=== PATIENT | male | born 1990 | race Caucasian/White ===

== ENCOUNTER 2022-11-26 12:53 | Inpatient (IN) | payer OTHER, SELFPAY ==
[2022-11-26] VITALS (22 sets, daily range): BP systolic 97–124; BP diastolic 46–70; PULSE 96–105; RESP 12–23; TEMP 36.4–36.8; O2SAT 98–100; BMI 22.1; BMI 23.7
--- NOTE | 2022-11-26 13:08 | ED.GENADUL1 ---
HPI - General Adult General Chief complaint: Nausea/Vomiting/Diarrhea Stated complaint: hyperglycemia Time Seen by Provider: 11/26/22 13:01 Source: patient Mode of arrival: ambulance History of Present Illness HPI narrative: this patient's here by ambulance for evaluation of vomiting and high blood sugar. He has a known juvenile diabetic and does have a diabetic doctor in [place]. Jadiel does not have an insulin pump. For uncertain reasons he did not take any of his insulin yesterday. He felt fine all day yesterday and completed his work day. Approximately 11 PM last night he started having nausea and vomiting. Has not been running a fever. Does not have cough cold or upper respirations symptoms. No chest pain or shortness of breath. No abdominal pain. No recent infectious process or skin lesions. His meds have not been changed. There is a said he was noncompliant yesterday. Denies any use of street drugs. Related Data Home Medications Medication Instructions Recorded Confirmed insulin lispro 100 unit/mL 1 sliding scale dose subcut 11/26/22 11/26/22 subcutaneous solution .COMPLEX Previous Rx's Medication Instructions Recorded insulin degludec 100 unit/mL (3 20 unit (0.2 mL) subcut Q24H #0 mL 11/28/22 mL) subcutaneous pen (Tresiba FlexTouch U-100 insulin) nystatin 100,000 unit/mL oral 1 ml PO QID 7 days #28 mL 11/28/22 suspension Allergies Allergy/AdvReac Type Severity Reaction Status Date / Time No Known Drug Allergies Allergy Verified 11/26/22 12:56 [facility] Medical History (Updated 12/21/22 @ 15:04 by Danny Zarate MD) Social History Smoking status: Former smoker Exam Narrative Exam Narrative: awake alert not confused. Does not have any pain just, or discomfort. Just feels extremely weak and fatigued. Constitutional Vital Signs - 24 hr 11/26/22 12:59 Temperature 97.6 F Pulse Rate [Monitor] 100 H Respiratory Rate 15 Blood Pressure [Right Arm] 102/70 Pulse Oximetry 100 Oxygen Delivery Method Room Air Common normals: no apparent distress, average body habitus and alert Exam limitations: no altered mental status General appearance: cooperative Respiratory Common normals: normal respiratory effort and clear to auscultation bilaterally Cardio Common normals: no murmurs GI Common normals: Normal to inspection, nondistended, normoactive bowel sounds present and non-tender Extremity Common normals: normal to inspection and no pedal edema Course Vital Signs Vital signs: Vital Signs Pulse Oximetry 100 11/26/22 12:57 Temperature 98.4 F 11/28/22 14:39 Pulse Rate 98 H 11/28/22 14:39 Respiratory Rate 16 11/28/22 14:39 Blood Pressure 142/79 H 11/28/22 14:39 Pulse Oximetry 95 11/28/22 14:39 Oxygen Delivery Method Room Air 11/28/22 15:53 Medical Decision Making MDM Narrative Medical decision making narrative: this patient reports that he gave himself twenty-five units of rapid acting insulin shortly before paramedics arrived. Patient's BUN/creatinine which suggests substantial fluid loss over several days and he confirms his blood sugars have in fact been running very high. He had a history of DKA many many years ago but none recently. His anion gap is quite elevated. Phosphorus and magnesium levels were elevated as well. He was given IV fluids and when the laboratory was completed I spoke with the hospitalist who will order insulin drip on this patient. Again he was given himself insulin before he arrived here in the Emergency Room. Lab Data Labs: Lab Results 11/26/22 11/26/22 Range/Units 13:23 14:17 WBC 20.7 H (4.0-11.0) 10^3/uL RBC 4.20 L (4.70-6.10) 10^6/uL Hgb 13.1 L (14.0-18.0) g/dL Hct 37.5 L (42.0-54.0) % MCV 89.3 (80.0-94.0) fL MCH 31.2 (25.9-34.0) pg MCHC 34.9 (29.9-35.2) g/dL RDW 11.5 (11.0-15.0) % Plt Count 310 (150-450) 10^3/uL MPV 8.9 L (9.5-13.5) fL Seg Neuts % (Manual) 83.0 Band Neutrophils % 1.0 (0-5) % Lymphocytes % (Manual) 14.0 L (20.5-60.0) % Monocytes % (Manual) 2.0 (1.7-12.0) % Eosinophils % (Manual) 0.0 L (0.9-7.0) % Basophils % (Manual) 0.0 L (0.2-2.0) % Neutrophils # (Manual) 17.18 H (1.4-6.5) 10^3/uL Band Neutrophils # 0.2 (0.0-0.3) 10^3/uL Lymphocytes # (Manual) 2.89 (1.20-3.80) 10^3/uL Monocytes # (Manual) 0.41 (0.30-0.80) 10^3/uL Eosinophils # (Manual) 0.00 (0.00-0.70) 10^3/uL Basophils # (Manual) 0.00 (0.00-0.10) 10^3/uL Sodium 136 (136-145) mmol/L Potassium 4.2 (3.5-5.1) mmol/L Chloride 95 L (98-107) mmol/L Carbon Dioxide 8.6 L (21.0-32.0) mmol/L Anion Gap 36.6 BUN 46.0 H (7.0-18.0) mg/dL Creatinine 2.30 H (0.70-1.30) mg/dL Est GFR ( Amer) 40 L (>=60) Est GFR (Non-Af Amer) 33 L (>=60) BUN/Creatinine Ratio 20.0 Glucose 598 H* (74-106) mg/dL Lactate 2.1 H (0.4-2.0) mmol/L Calcium 9.0 (8.5-10.1) mg/dL Phosphorus 6.2 H* (2.6-4.7) mg/dL Magnesium 2.8 H (1.8-2.4) mg/dL POC Glucose 528 H* (74-106) mg/dL Discharge Plan Discharge Chief Complaint: Nausea/Vomiting/Diarrhea Clinical Impression: DKA (diabetic ketoacidosis) Patient Disposition: Admitted As Inpatient Time of Disposition Decision: 14:41 Discharge Date/Time: 11/26/22 15:07
--- NOTE | 2022-11-26 13:28 | PC.NURSE ---
Pt ran out of Dexcom sensors 3 days ago -- started feeling ill last night. BS with EMS 593. Pt is N/V.
[2022-11-26] MEDS: 0.9 % SODIUM CHLORIDE 1,000 ML 999 ML IV ×2 (13:34→14:47)
[2022-11-26 13:45] LABS: Hematocrit 37.5 % (42.0-54.0); Hemoglobin 13.1 g/dL (14.0-18.0); Mean Corpuscular HGB Conc 34.9 g/dL (29.9-35.2); Mean Corpuscular Hemoglobin 31.2 pg (25.9-34.0); Mean Corpuscular Volume 89.3 fL (80.0-94.0); Mean Platelet Volume 8.9 fL (9.5-13.5); Platelet Count 310 10^3/uL (150-450); Red Cell Distribution Width 11.5 % (11.0-15.0); White Blood Count 20.7 10^3/uL (4.0-11.0)
[2022-11-26 14:01] LABS: Lactate/Lactic Acid 2.1 mmol/L (0.4-2.0)
[2022-11-26 14:08] LABS: Anion Gap 36.6; Carbon Dioxide 8.6 mmol/L (21.0-32.0); Chloride 95 mmol/L (98-107); Estimated GFR (African America 40 (>=60); Estimated GFR (Non-African Ame 33 (>=60); Magnesium 2.8 mg/dL (1.8-2.4); Potassium 4.2 mmol/L (3.5-5.1); Sodium 136 mmol/L (136-145)
[2022-11-26 14:13] LABS: Band Neutrophils Absolute 0.2 10^3/uL (0.0-0.3); Lymphocytes Absolute Manual 2.89 10^3/uL (1.20-3.80); Monocytes Absolute Manual 0.41 10^3/uL (0.30-0.80); Segmented Neut Absolute Manual 17.18 10^3/uL (1.4-6.5)
[2022-11-26 14:16] LABS: Glucose 598 mg/dL (74-106); Phosphorus 6.2 mg/dL (2.6-4.7)
[2022-11-26 14:20] LABS: Glucometer 528 mg/dL (74-106)
--- NOTE | 2022-11-26 14:48 | ECG_ITS ---
[facility] Test Date: 2022-11-26 Pat Name: REZA REZA Department: Room: - Gender: Male [facility] [employer]: : 1990 Requested By: JOANNA GARCIA Order Number: [id number] Reading MD: TIGIST VASQUEZ Measurements Intervals [place] Rate: 96 P: 82 PA: 146 QRS: 91 QRSD: 110 T: -3 QT: 380 QTc: 433 Interpretive Statements 1100 Sinus rhythm Non-Specific T wave inversion in III 7102 Moderate right axis deviation 0102 ARTIFACT PRESENT 9130 borderline ECG No previous ECG available for comparison Electronically Signed On 11-28-2022 7:49:15 EDT by TIGIST VASQUEZ
[2022-11-26] MEDS: POTASSIUM CHLORIDE-0.45% NACL 1,000 ML 100 MEQ IV (15:37)
[2022-11-26] MEDS: INSULIN REGULAR IN 0.9 % NACL 100 UNIT/100 ML PLAST..BAG IV (15:37)
--- NOTE | 2022-11-26 16:05 | P.HP_ITS ---
H&P: HPI History of Present Illness Chief complaint: hypoglycemia, DKA Narrative: 32 y.o. male with history of Insulin dependent diabetes developed vomiting yesterday. He reports vomiting about every hour, no diarrhea, no fevers or chills. No sick contacts. He has not taken his insulin in several days. No other medical history, no personal history of kidney disease. Lives with mom and dad, does work daily. Review of Systems ROS Narrative ROS: a complete review of systems were reviewed with patient and are positive as below or listed in History of Chief Complaint. General: no fever, chills, night sweats Head: no headache, trauma, visual changes, nausea or vomiting Skin: no reported rashes, itching or sores Eyes: no blurriness of vision Ears: no reported hearing loss, vertigo, earache, or tinnitus Throat: no sore throat, hoarseness, swelling of neck, or tongue pain Heart: no chest pain Lungs: no shortness of breath or cough GI: no diarrhea but vomiting/nausea Urinary: no urinary urgency, frequency or pain Neuro: no numbness or tingling HEM: no bleeding issues or bruising ENDO: no thyroid problems Psych: no anxiety or depression [facility] Medical History (Updated 11/26/22 @ 16:15 by Sarah Reynaga DO) Social History Smoking status: Former smoker Meds Home Medications and Allergies Home Medications Medication Instructions Recorded Confirmed Type insulin degludec 100 unit/mL (3 26 unit subcut Q24H 11/26/22 11/26/22 History mL) subcutaneous pen (Tresiba FlexTouch U-100 insulin) insulin lispro 100 unit/mL 1 sliding scale dose subcut 11/26/22 11/26/22 History subcutaneous solution .COMPLEX Allergies Allergy/AdvReac Type Severity Reaction Status Date / Time No Known Drug Allergies Allergy Verified 11/26/22 12:56 Exam Narrative Exam Narrative: General: Patient is alert, and oriented to person, place and time with normal affect, proper hygiene Skin: no visible rashes, or ulcers Head: atraumatic, acephalic Eyes: PERRLA, no nystagmus present, conjunctiva clear, no scleral icterus Ears: bilateral cerumen impaction, normal gross auditory acuity Nose: symmetric, no discharge, no maxillary or frontal sinus tenderness Mouth/Throat: no erythema, exudate, or tonsillar enlargement, normal dentition Neck: no masses palpated, normal thyroid, no JVD or audible carotid bruits Heart: Normal rate and rhythm, no murmurs/rubs/gallops Lungs: no audible wheezes, crackles and normal breath sounds all lung mcgrath Abdomen: Normal audible bowel sounds, no distension, No palpable masses, no organomegaly, no rebound/guarding/ or rigidity Musculoskeletal: muscle atrophy noted, ROM is limited due to being in hospital bed, no swelling bilateral lower extremities Vascular: Normal carotid, radial, femoral, posterior tibial, and dorsalis pedis pulses Lymph: no supraclavicular, axillary, or anterior/posterior cervical adenopathy Neuro: CN II-X grossly intact, normal sensation upper and lower extremities Constitutional Vital Signs - 24 hr 11/26/22 12:59 11/26/22 12:57 11/26/22 13:00 Temperature 97.6 F Pulse Rate 100 H Pulse Rate [Monitor] 100 H Respiratory Rate 15 14 Blood Pressure 99/49 L Blood Pressure [Right Arm] 102/70 Pulse Oximetry 100 100 100 Oxygen Delivery Method Room Air 11/26/22 13:00 11/26/22 13:17 11/26/22 13:31 Temperature Pulse Rate 96 H 100 H 103 H Pulse Rate [Monitor] Respiratory Rate 20 13 17 Blood Pressure 97/58 L 99/55 L Blood Pressure [Right Arm] Pulse Oximetry 100 100 99 Oxygen Delivery Method 11/26/22 13:45 11/26/22 14:00 11/26/22 14:15 Temperature Pulse Rate 105 H 103 H 103 H Pulse Rate [Monitor] Respiratory Rate 15 18 16 Blood Pressure 101/67 112/56 L 124/70 H Blood Pressure [Right Arm] Pulse Oximetry 100 99 99 Oxygen Delivery Method 11/26/22 14:30 11/26/22 14:45 11/26/22 15:00 Temperature Pulse Rate 103 H 100 H 102 H Pulse Rate [Monitor] Respiratory Rate 14 14 14 Blood Pressure 109/62 99/66 97/64 Blood Pressure [Right Arm] Pulse Oximetry 99 99 99 Oxygen Delivery Method 11/26/22 15:07 11/26/22 15:10 11/26/22 15:13 Temperature Pulse Rate 102 H 100 H 99 H Pulse Rate [Monitor] Respiratory Rate 14 16 23 Blood Pressure Blood Pressure [Right Arm] Pulse Oximetry Oxygen Delivery Method 11/26/22 15:14 Temperature Pulse Rate 100 H Pulse Rate [Monitor] Respiratory Rate 12 Blood Pressure 100/52 L Blood Pressure [Right Arm] Pulse Oximetry 98 Oxygen Delivery Method Results Labs Labs: Short CBC 11/26/22 Range/Units 13:23 WBC 20.7 H (4.0-11.0) 10^3/uL Hgb 13.1 L (14.0-18.0) g/dL Hct 37.5 L (42.0-54.0) % Plt Count 310 (150-450) 10^3/uL BMP 11/26/22 13:23 Sodium 136 Potassium 4.2 Chloride 95 L Carbon Dioxide 8.6 L BUN 46.0 H Creatinine 2.30 H Glucose 598 H* Calcium 9.0 Assessment and Plan Assessment and Plan (1) Diabetic ketoacidosis associated with type 2 diabetes mellitus: Assessment and Plan: start insulin drip at 2 units/hour, q 6 hours cmp, mag; IVF with 3 L NS, now on 1/2 NS with 20 KCL once sugars <200 then start d5 1/2 NS. SSI, once gap closes, currently 35 anion gap and will also restart long acting insulin (2) Acute renal failure (ARF): Assessment and Plan: check urinalysis, possible CT scan, ultrasound has left for the day (3) Dehydration: Assessment and Plan: IVF hydration
[2022-11-26 21:57] LABS: Alanine Aminotransferase 27 U/L (16-63); Albumin Level 3.3 g/dL (3.4-5.0); Alkaline Phosphatase 113 U/L (46-116); Aspartate Amino Transferase 22 U/L (15-37); BUN Creatinine Ratio 18.8; Bilirubin Total 0.5 mg/dL (0.2-1.0); Calcium 8.3 mg/dL (8.5-10.1); Carbon Dioxide 18.5 mmol/L (21.0-32.0); Chloride 103 mmol/L (98-107); Estimated GFR (African America 51 (>=60); Estimated GFR (Non-African Ame 42 (>=60); Globulin 3.4 g/dL; Glucose 286 mg/dL (74-106); Potassium 4.5 mmol/L (3.5-5.1); Sodium 138 mmol/L (136-145); Total Protein 6.7 g/dL (6.4-8.2)
[2022-11-26 21:58] LABS: Magnesium 2.1 mg/dL (1.8-2.4)
[2022-11-26 22:01] LABS: Lactate/Lactic Acid 0.7 mmol/L (0.4-2.0)
[2022-11-26 22:52] LABS: Bilirubin Urine SMALL (NEGATIVE); Blood Urine NEGATIVE (NEGATIVE); Clarity Urine CLEAR (CLEAR); Color Urine LT. YELLOW (YELLOW); Glucose Urine UA >=1000 mg/dL (NEGATIVE); Ketones Urine >=80 mg/dL (NEGATIVE); Leukocyte Esterase Urine NEGATIVE (NEGATIVE); Nitrite Urine NEGATIVE (NEGATIVE); Protein Urine NEGATIVE (NEG/TRACE); Specific Gravity Urine 1.015 (1.005-1.025); Urobilinogen Urine 0.2 EU/dL (0.2-1.0); pH Urine 5.5 (5.0-9.0)
[2022-11-26 22:53] LABS: Urine Microscopic Indicated NO
[2022-11-26 23:23] LABS: Amphetamine Screen Urine NEGATIVE (NEGATIVE); Barbiturates Screen Urine NEGATIVE (NEGATIVE); Benzodiazepines Screen Urine NEGATIVE (NEGATIVE); Buprenorphine Screen Urine NEGATIVE (NEGATIVE); Cannabinoid Screen Urine NEGATIVE (NEGATIVE); Cocaine Screen Urine NEGATIVE (NEGATIVE); Methadone Screen Urine NEGATIVE (NEGATIVE); Methamphetamines Screen Urine NEGATIVE (NEGATIVE); Opiate Screen Urine NEGATIVE (NEGATIVE); Oxycodone Screen Urine NEGATIVE (NEGATIVE); Phencyclidine Screen Urine NEGATIVE (NEGATIVE); Tricyclic Antidepressant Urine NEGATIVE (NEGATIVE)
[2022-11-27] VITALS (15 sets, daily range): BP systolic 112–149; BP diastolic 63–91; PULSE 93–109; RESP 13–18; TEMP 36.6–37.7; O2SAT 93–97
[2022-11-27] MEDS: POTASSIUM CHLORIDE-0.45% NACL 1,000 ML 100 MEQ IV (02:23)
[2022-11-27 03:42] LABS: Basophils Percent Auto 0.1 % (0.2-2.0); Hematocrit 30.8 % (42.0-54.0); Hemoglobin 11.1 g/dL (14.0-18.0); Immature Granulocytes Abs Auto 0.05 10^3/uL (0.00-0.03); Immature Granulocytes Pct Auto 0.4 % (0.0-0.5); Lymphocytes Absolute Auto 0.9 10^3/uL (1.2-3.8); Lymphocytes Percent Auto 6.6 % (20.5-60.0); Mean Corpuscular Hemoglobin 31.2 pg (25.9-34.0); Mean Corpuscular Volume 86.5 fL (80.0-94.0); Mean Platelet Volume 8.1 fL (9.5-13.5); Monocytes Percent Auto 7.1 % (1.7-12.0); Neutrophils Absolute Auto 11.7 10^3/uL (1.4-6.5); Neutrophils Percent Auto 85.8 % (43.0-75.0); Platelet Count 215 10^3/uL (150-450); Red Blood Count 3.56 10^6/uL (4.70-6.10); White Blood Count 13.6 10^3/uL (4.0-11.0)
[2022-11-27 03:59] LABS: Estimated Average Glucose 413 mg/dL; Glycohemoglobin A1C >16.0 % (4.5-6.2)
[2022-11-27 04:06] LABS: Alanine Aminotransferase 27 U/L (16-63); Albumin Globulin Ratio 0.9; Alkaline Phosphatase 103 U/L (46-116); Anion Gap 12.7; Aspartate Amino Transferase 29 U/L (15-37); BUN Creatinine Ratio 17.4; Bilirubin Total 0.4 mg/dL (0.2-1.0); Calcium 8.2 mg/dL (8.5-10.1); Carbon Dioxide 24.3 mmol/L (21.0-32.0); Chloride 105 mmol/L (98-107); Estimated GFR (African America >60 (>=60); Estimated GFR (Non-African Ame 50 (>=60); Globulin 3.3 g/dL; Glucose 200 mg/dL (74-106); Sodium 138 mmol/L (136-145); Total Protein 6.3 g/dL (6.4-8.2)
[2022-11-27 04:07] LABS: Magnesium 2.1 mg/dL (1.8-2.4); Thyroid Stimulating Hormone 0.582 uIU/mL (0.358-3.740)
[2022-11-27] MEDS: INSULIN ASPART 300 UNIT/3 ML PEN SUBQ (08:29)
[2022-11-27 09:14] LABS: Alanine Aminotransferase 24 U/L (16-63); Albumin Globulin Ratio 0.9; Albumin Level 3.1 g/dL (3.4-5.0); Alkaline Phosphatase 105 U/L (46-116); Anion Gap 17.5; Aspartate Amino Transferase 31 U/L (15-37); BUN Creatinine Ratio 15.3; Bilirubin Total 0.5 mg/dL (0.2-1.0); Calcium 8.4 mg/dL (8.5-10.1); Carbon Dioxide 21.8 mmol/L (21.0-32.0); Chloride 102 mmol/L (98-107); Estimated GFR (African America >60 (>=60); Estimated GFR (Non-African Ame >60 (>=60); Globulin 3.6 g/dL; Glucose 282 mg/dL (74-106); Potassium 4.3 mmol/L (3.5-5.1); Sodium 137 mmol/L (136-145); Total Protein 6.7 g/dL (6.4-8.2)
[2022-11-27 09:38] LABS: Glucometer 245 mg/dL (74-106)
[2022-11-27] MEDS: INSULIN DETEMIR 300 UNIT/3 ML INSULN.PEN 15 UNIT SUBQ (11:32)
--- NOTE | 2022-11-27 13:12 | P.PN_ITS ---
Progress Note: Subjective Subjective Interval history: 32 y.o. male with history of Insulin dependent diabetes developed vomiting 2 days ago. He reports vomiting about every hour, no diarrhea, no fevers or chills. No sick contacts. He has not taken his insulin in several days. No other medical history, no personal history of kidney disease. Lives with mom and dad, does work daily. feels better this morning, no vomiting overnight. admits to sore throat today Exam Narrative Exam Narrative: General: Patient is alert, and oriented to person, place and time with normal affect, proper hygiene Skin: no visible rashes, or ulcers Head: atraumatic, acephalic Heart: Normal rate and rhythm, no murmurs/rubs/gallops Lungs: no audible wheezes, crackles and normal breath sounds all lung mcgrath Abdomen: Normal audible bowel sounds, no distension, No palpable masses, no organomegaly, no rebound/guarding/ or rigidity Musculoskeletal: muscle atrophy noted, ROM is limited due to being in hospital bed, no swelling bilateral lower extremities Vascular: Normal carotid, radial, femoral, posterior tibial, and dorsalis pedis pulses Lymph: no supraclavicular, axillary, or anterior/posterior cervical adenopathy Neuro: CN II-X grossly intact, normal sensation upper and lower extremities Constitutional Vital Signs - 24 hr 11/26/22 13:17 11/26/22 13:31 11/26/22 13:45 Temperature Pulse Rate 100 H 103 H 105 H Pulse Rate [Monitor] Respiratory Rate 13 17 15 Blood Pressure 97/58 L 99/55 L 101/67 Blood Pressure [Right Arm] Pulse Oximetry 100 99 100 Oxygen Delivery Method 11/26/22 14:00 11/26/22 14:15 11/26/22 14:30 Temperature Pulse Rate 103 H 103 H 103 H Pulse Rate [Monitor] Respiratory Rate 18 16 14 Blood Pressure 112/56 L 124/70 H 109/62 Blood Pressure [Right Arm] Pulse Oximetry 99 99 99 Oxygen Delivery Method 11/26/22 14:45 11/26/22 15:00 11/26/22 15:07 Temperature Pulse Rate 100 H 102 H 102 H Pulse Rate [Monitor] Respiratory Rate 14 14 14 Blood Pressure 99/66 97/64 Blood Pressure [Right Arm] Pulse Oximetry 99 99 Oxygen Delivery Method 11/26/22 15:10 11/26/22 15:13 11/26/22 15:14 Temperature Pulse Rate 100 H 99 H 100 H Pulse Rate [Monitor] Respiratory Rate 16 23 12 Blood Pressure 100/52 L Blood Pressure [Right Arm] Pulse Oximetry 98 Oxygen Delivery Method 11/26/22 15:19 11/26/22 15:19 11/26/22 15:19 Temperature 98.3 F Pulse Rate 101 H Pulse Rate [Monitor] 101 H 101 H Respiratory Rate 18 18 18 Blood Pressure Blood Pressure [Right Arm] 100/46 L Pulse Oximetry 99 100 Oxygen Delivery Method Room Air Room Air 11/26/22 14:57 11/26/22 16:30 11/26/22 19:19 Temperature Pulse Rate 101 H Pulse Rate [Monitor] 101 H Respiratory Rate 18 Blood Pressure Blood Pressure [Right Arm] Pulse Oximetry 99 Oxygen Delivery Method Room Air 11/26/22 19:35 11/27/22 00:00 11/26/22 20:00 Temperature 98 F Pulse Rate Pulse Rate [Monitor] 101 H Respiratory Rate 13 Blood Pressure Blood Pressure [Right Arm] Pulse Oximetry 99 Oxygen Delivery Method Room Air 11/27/22 04:00 11/27/22 04:06 11/26/22 20:00 Temperature Pulse Rate 93 H 99 H Pulse Rate [Monitor] 101 H Respiratory Rate 13 Blood Pressure Blood Pressure [Right Arm] Pulse Oximetry Oxygen Delivery Method 11/26/22 22:30 11/27/22 00:30 11/27/22 02:30 Temperature Pulse Rate 101 H 95 H 98 H Pulse Rate [Monitor] Respiratory Rate Blood Pressure Blood Pressure [Right Arm] Pulse Oximetry Oxygen Delivery Method 11/26/22 15:14 11/26/22 20:00 11/27/22 03:47 Temperature 98.2 F Pulse Rate 100 H 98 H 96 H Pulse Rate [Monitor] Respiratory Rate 15 15 16 Blood Pressure 100/52 L 119/70 115/63 Blood Pressure [Right Arm] Pulse Oximetry 99 100 Oxygen Delivery Method 11/27/22 03:47 11/27/22 04:16 11/27/22 04:00 Temperature 98 F Pulse Rate 96 H Pulse Rate [Monitor] Respiratory Rate 13 Blood Pressure 115/63 Blood Pressure [Right Arm] Pulse Oximetry 97 Oxygen Delivery Method Room Air 11/27/22 00:00 11/27/22 03:47 11/27/22 08:00 Temperature 98 F Pulse Rate 94 H Pulse Rate [Monitor] 99 H Respiratory Rate 14 16 Blood Pressure 115/63 Blood Pressure [Right Arm] Pulse Oximetry Oxygen Delivery Method 11/27/22 08:00 11/27/22 11:24 11/27/22 12:00 Temperature Pulse Rate 99 H Pulse Rate [Monitor] 99 H Respiratory Rate 16 16 Blood Pressure Blood Pressure [Right Arm] 123/65 H Pulse Oximetry 96 95 Oxygen Delivery Method Room Air Room Air 11/27/22 12:00 Temperature 98 F Pulse Rate 99 H Pulse Rate [Monitor] Respiratory Rate 16 Blood Pressure Blood Pressure [Right Arm] 112/65 Pulse Oximetry 95 Oxygen Delivery Method Room Air Progress Note: Objective Labs Labs: Short CBC 11/26/22 11/27/22 Range/Units 13:23 03:36 WBC 20.7 H 13.6 H (4.0-11.0) 10^3/uL Hgb 13.1 L 11.1 L (14.0-18.0) g/dL Hct 37.5 L 30.8 L (42.0-54.0) % Plt Count 310 215 (150-450) 10^3/uL BMP 11/26/22 11/26/22 11/27/22 13:23 21:36 03:36 Sodium 136 138 138 Potassium 4.2 4.5 4.0 Chloride 95 L 103 105 Carbon Dioxide 8.6 L 18.5 L 24.3 BUN 46.0 H 35.0 H 28.0 H Creatinine 2.30 H 1.86 H 1.61 H Glucose 598 H* 286 H 200 H Calcium 9.0 8.3 L 8.2 L 11/27/22 08:47 Sodium 137 Potassium 4.3 Chloride 102 Carbon Dioxide 21.8 BUN 21.0 H Creatinine 1.37 H Glucose 282 H Calcium 8.4 L Liver Function 11/26/22 11/27/22 11/27/22 Range/Units 21:36 03:36 08:47 Total Bilirubin 0.5 0.4 0.5 (0.2-1.0) mg/dL AST 22 29 31 (15-37) U/L ALT 27 27 24 (16-63) U/L Alkaline Phosphatase 113 103 105 (46-116) U/L Albumin 3.3 L 3.0 L 3.1 L (3.4-5.0) g/dL Urine 11/26/22 Range/Units 20:45 Urine Color Lt. yellow (YELLOW) Urine Clarity Clear (CLEAR) Urine pH 5.5 (5.0-9.0) Ur Specific [place] 1.015 (1.005-1.025) Urine Protein Negative (NEG/TRACE) mg/dL Urine Glucose (UA) >=1000 A (NEGATIVE) mg/dL Progress Note: A&P Assessment and Plan (1) DKA, type 1: Assessment and Plan: start insulin drip at 2 units/hour, q 6 hours cmp, mag; IVF with 3 L NS, now on 1/2 NS with 20 KCL once sugars <200 then start d5 1/2 NS. SSI, once gap closes, currently 35 anion gap and will also restart long acting insulin; GAP 13 and glucose 200, stop drip. HA1c 16, which shows non compliance order for diabetic education tomorrow. No longer ICU status (2) Acute renal failure (ARF): Assessment and Plan: check urinalysis, no infection just glucose and ketones, no need for CT scan; creatinine improving with IVF was 1.61 (3) Dehydration: Assessment and Plan: improved after IVF
[2022-11-27] MEDS: BENZOCAINE/MENTHOL 1 EACH LOZENGE 1 LOZENGE PO ×3 (15:12→20:57)
[2022-11-28] VITALS (11 sets, daily range): BP systolic 138–142; BP diastolic 79–80; PULSE 0–112; RESP 16–18; TEMP 36.9; O2SAT 92–95
[2022-11-28] MEDS: POTASSIUM CHLORIDE-0.45% NACL 1,000 ML 100 MEQ IV (02:52)
[2022-11-28 04:35] LABS: Basophils Percent Auto 0.2 % (0.2-2.0); Hematocrit 34.2 % (42.0-54.0); Hemoglobin 11.9 g/dL (14.0-18.0); Immature Granulocytes Abs Auto 0.05 10^3/uL (0.00-0.03); Immature Granulocytes Pct Auto 0.4 % (0.0-0.5); Lymphocytes Percent Auto 8.3 % (20.5-60.0); Mean Corpuscular HGB Conc 34.8 g/dL (29.9-35.2); Mean Corpuscular Hemoglobin 30.9 pg (25.9-34.0); Mean Corpuscular Volume 88.8 fL (80.0-94.0); Mean Platelet Volume 8.5 fL (9.5-13.5); Monocytes Absolute Auto 0.9 10^3/uL (0.3-0.8); Monocytes Percent Auto 7.2 % (1.7-12.0); Neutrophils Absolute Auto 10.2 10^3/uL (1.4-6.5); Neutrophils Percent Auto 83.9 % (43.0-75.0); Platelet Count 176 10^3/uL (150-450); Red Blood Count 3.85 10^6/uL (4.70-6.10); Red Cell Distribution Width 12.4 % (11.0-15.0); White Blood Count 12.1 10^3/uL (4.0-11.0)
[2022-11-28 04:49] LABS: Alanine Aminotransferase 22 U/L (16-63); Albumin Globulin Ratio 0.7; Albumin Level 2.8 g/dL (3.4-5.0); Alkaline Phosphatase 107 U/L (46-116); Anion Gap 12.4; Aspartate Amino Transferase 31 U/L (15-37); BUN Creatinine Ratio 9.3; Bilirubin Total 0.5 mg/dL (0.2-1.0); Calcium 8.4 mg/dL (8.5-10.1); Carbon Dioxide 26.6 mmol/L (21.0-32.0); Chloride 100 mmol/L (98-107); Estimated GFR (African America >60 (>=60); Estimated GFR (Non-African Ame >60 (>=60); Globulin 3.8 g/dL; Glucose 155 mg/dL (74-106); Sodium 135 mmol/L (136-145); Total Protein 6.6 g/dL (6.4-8.2)
--- NOTE | 2022-11-28 10:59 | CM.NOTE ---
Rounds made with chase Leon for discharge after meeting with vice president of manufacturing. No other discharge needs identified.
[2022-11-28 11:02] LABS: Internal Control Within Normal Limits; Strep A Antigen Screen Negative
--- NOTE | 2022-11-28 11:29 | P.DS_ITS ---
DS: Providers Provider Date of admission: 11/26/22 15:07 Primary care physician: JOANNA GARCIA Admitting clinician: Sarah Reynaga Consults: 11/27/22 08:46 Consult to [employer] Advanced Operator Maintainer Routine Attending physician on discharge: Sarah Reynaga DS: Diagnosis Discharge Diagnosis (1) DKA, type 1: Assessment and plan: ketoacidosis has resolved at the time of discharge. Patient was initially on an insulin drip but anion gap resolved and sugars are now less than two hundred. Patient will be discharged on twenty units of his long-acting insulin and to continue his sliding scale coverage with meals. He has no longer having any na usea or vomiting. 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 (5) Oral candidiasis: Assessment and plan: rapid strep negative, will treat with oral nystatin DS: Summary Status at Discharge Functional status at discharge: independent ambulation Overall status at discharge: patient is back to baseline Time Spent with Patient Time attestation: Total time spent providing and/or coordinating discharge services: Exam Narrative Exam Narrative: General: Patient is alert, and oriented to person, place and time with normal affect, proper hygiene Skin: no visible rashes, or ulcers Head: atraumatic, acephalic Eyes: PERRLA, no nystagmus present, conjunctiva clear, no scleral icterus Mouth/Throat: erythema, whitish exudate, no tonsillar enlargement, normal dentition Neck: no masses palpated, normal thyroid, no JVD or audible carotid bruits Heart: Normal rate and rhythm, no murmurs/rubs/gallops Lungs: no audible wheezes, crackles and normal breath sounds all lung mcgrath Abdomen: Normal audible bowel sounds, no distension, No palpable masses, no organomegaly, no rebound/guarding/ or rigidity Musculoskeletal: muscle atrophy noted, ROM is limited due to being in hospital bed, no swelling bilateral lower extremities Vascular: Normal carotid, radial, femoral, posterior tibial, and dorsalis pedis pulses Lymph: no supraclavicular, axillary, or anterior/posterior cervical adenopathy Neuro: CN II-X grossly intact, normal sensation upper and lower extremities Constitutional Vital Signs - 24 hr 11/27/22 12:00 11/27/22 12:00 11/27/22 16:00 Temperature 98 F Pulse Rate 99 H Pulse Rate [Monitor] 99 H 99 H Respiratory Rate 16 16 16 Blood Pressure [Right Arm] 112/65 Pulse Oximetry 95 Oxygen Delivery Method Room Air 11/27/22 16:00 11/27/22 20:05 11/27/22 20:05 Temperature 97.8 F Pulse Rate 109 H Pulse Rate [Monitor] Respiratory Rate 16 Blood Pressure [Right Arm] 149/91 H Pulse Oximetry 95 96 Oxygen Delivery Method Room Air Room Air 11/27/22 20:16 11/27/22 21:19 11/27/22 22:00 Temperature 99.9 F H Pulse Rate 107 H 103 H 101 H Pulse Rate [Monitor] Respiratory Rate 18 Blood Pressure [Right Arm] 136/87 H Pulse Oximetry 93 L Oxygen Delivery Method Room Air 11/28/22 00:00 11/28/22 02:00 11/28/22 04:00 Temperature Pulse Rate 100 H 102 H 101 H Pulse Rate [Monitor] Respiratory Rate Blood Pressure [Right Arm] Pulse Oximetry Oxygen Delivery Method 11/28/22 04:19 11/28/22 05:50 11/28/22 06:06 Temperature 98.4 F Pulse Rate 92 H 112 H Pulse Rate [Monitor] Respiratory Rate 18 Blood Pressure [Right Arm] 138/80 H Pulse Oximetry 92 L 95 Oxygen Delivery Method Room Air Room Air 11/28/22 07:48 11/28/22 09:58 11/28/22 11:29 Temperature Pulse Rate 100 H 100 H Pulse Rate [Monitor] Respiratory Rate Blood Pressure [Right Arm] Pulse Oximetry 94 L Oxygen Delivery Method Room Air DS: Data Data Completed and Pending Labs on day of discharge: Labs from last 24 hours 11/28/22 11/28/22 10:48 04:07 WBC 12.1 H RBC 3.85 L Hgb 11.9 L Hct 34.2 L MCV 88.8 MCH 30.9 MCHC 34.8 RDW 12.4 Plt Count 176 MPV 8.5 L Neut % (Auto) 83.9 H Lymph % (Auto) 8.3 L [place] % (Auto) 7.2 Eos % (Auto) 0.0 L Baso % (Auto) 0.2 Neut # (Auto) 10.2 H Lymph # (Auto) 1.0 L [place] # (Auto) 0.9 H Eos # (Auto) 0.0 Baso # (Auto) 0.0 Abs Immat Gran (auto) 0.05 H Imm/Tot Granulo (auto) 0.4 Sodium 135 L Potassium 4.0 Chloride 100 Carbon Dioxide 26.6 Anion Gap 12.4 BUN 10.0 Creatinine 1.07 Est GFR ( Amer) >60 Est GFR (Non-Af Amer) >60 BUN/Creatinine Ratio 9.3 Glucose 155 H Calcium 8.4 L Total Bilirubin 0.5 AST 31 ALT 22 Alkaline Phosphatase 107 Total Protein 6.6 Albumin 2.8 L Globulin 3.8 Albumin/Globulin Ratio 0.7 Streptococcus Screen Negative Discharge Plan Discharge Disposition: Home, Self-Care Discharge Medications: New nystatin 100,000 unit/mL suspension 1 ml PO QID 7 Days Qty: 28 0RF Rx Instructions: administer 1/2 of dose in each side of the mouth Continued insulin lispro 100 unit/mL solution 1 sliding scale dose subcut .COMPLEX Rx Instructions: 1 sliding scale dose subcutaneously; Changed insulin degludec [Tresiba FlexTouch U-100] 100 unit/mL (3 mL) insulin pen 20 unit SUBCUT Q24H Qty: 0 0RF Activity: increase activity as tolerated Diet: advance to your usual diet and diabetic diet Patient Instructions: Insulin Lispro (By injection), Insulin Degludec (By injection) (Tresiba), Diabetic Ketoacidosis (DC), Diabetes Type 1: Management (DC) Forms: Portal Instructions Follow Up Appointments: Dr Kennedy MonDecember 05 at 10:20am, Dr Marysol Williamson December 08 at 1:50pm
--- NOTE | 2022-11-29 15:24 | CM.DCFOLLOWU ---
Person spoke with:patient How are you feeling? doing well How is your pain? no pain Did you understand your discharge instructions? yes Do you have any questions about your discharge instructions? no Were you given any prescriptions at discharge? yes Were you able to get your prescriptions filled? yes Do you understand how to take your medications as ordered? yes Do you have any questions about your follow up appointment and do you plan to keep your follow up appointment? no questions, yes will keep follow up appointments Is there anything else that you would like to discuss? no Questions/Comments/Concerns/Other:
== END 2022-11-28 14:55 | disposition home or self-care (01) | DRG 638 ==
LOC: ER 14:12 → ICU 15:14 → MS 11-27 15:53 → ICU 11-27 15:56 → MS 11-27 16:01
PROVIDERS: Admitting Provider Family Medicine; Emergency Provider Emergency Medicine Emergency Medical Services; PCP Family Medicine; Visit Provider Family Medicine
DX: E10.10 Type 1 diabetes mellitus with ketoacidosis without coma (principal); B37.0 Candidal stomatitis; N17.9 Acute kidney failure, unspecified; E86.0 Dehydration; T38.3X6A Underdosing of insulin and oral hypoglycemic [antidiabetic] drugs, initial encounter; Z91.128 Patient's intentional underdosing of medication regimen for other reason; Z87.891 Personal history of nicotine dependence; Z79.4 Long term (current) use of insulin
CPT/HCPCS: 36415; 80048; 80053; 80307; 81003; 82948; 83036; 83605; 83735; 84100; 84443; 85007; 85025; 87070; 87880; 93005; 94761; 95250; 96361; 96365; 96366; 99285; G0108

== ENCOUNTER 2022-12-31 10:05 | Emergency (ER) | payer OTHER, SELFPAY ==
[2022-12-31] VITALS (10 sets, daily range): BP systolic 116–128; BP diastolic 73–90; PULSE 81–91; RESP 16–18; TEMP 36.3; O2SAT 97–99; BMI 22.2
--- NOTE | 2022-12-31 09:56 | ECG_ITS ---
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
[2022-12-31] MEDS: 0.9 % SODIUM CHLORIDE 1,000 ML 1000 ML IV (10:06)
[2022-12-31 10:45] LABS: Alanine Aminotransferase 31 U/L (16-63); Albumin Globulin Ratio 0.9; Alkaline Phosphatase 160 U/L (46-116); Anion Gap 12.8; Aspartate Amino Transferase 18 U/L (15-37); BUN Creatinine Ratio 29.8; Bilirubin Total 0.5 mg/dL (0.2-1.0); Calcium 9.3 mg/dL (8.5-10.1); Carbon Dioxide 26.6 mmol/L (21.0-32.0); Chloride 103 mmol/L (98-107); Estimated GFR (African America >60 (>=60); Estimated GFR (Non-African Ame >60 (>=60); Globulin 4.3 g/dL; Glucose 235 mg/dL (74-106); Potassium 4.4 mmol/L (3.5-5.1); Sodium 138 mmol/L (136-145); Total Protein 8.3 g/dL (6.4-8.2); Troponin I High Sensitivity <4.0 pg/mL (4.0-76.1)
[2022-12-31 11:28] LABS: Glucometer 332 mg/dL (74-106)
[2022-12-31] MEDS: INSULIN REGULAR 300 UNITS/3 ML 8 UNIT SUBQ (12:31)
[2022-12-31 13:25] LABS: Glucometer 373 mg/dL (74-106)
[2022-12-31 13:45] LABS: Bilirubin Urine NEGATIVE (NEGATIVE); Blood Urine SMALL (NEGATIVE); Clarity Urine CLEAR (CLEAR); Color Urine LT. YELLOW (YELLOW); Glucose Urine UA NEGATIVE (NEGATIVE); Ketones Urine NEGATIVE (NEGATIVE); Leukocyte Esterase Urine NEGATIVE (NEGATIVE); Nitrite Urine NEGATIVE (NEGATIVE); Protein Urine NEGATIVE (NEG/TRACE); Specific Gravity Urine 1.015 (1.005-1.025); Urine Microscopic Indicated YES; Urobilinogen Urine 0.2 EU/dL (0.2-1.0); pH Urine 5.5 (5.0-9.0)
[2022-12-31 13:52] LABS: Bacteria Urine NONE SEEN #/HPF (NONE SEEN); Cast Seen? NONE SEEN #/LPF (NONE SEEN); Crystals Seen? None Seen #/HPF (None Seen); Mucus Urine NONE SEEN (NONE SEEN); Squamous Epithelial Cell Urine RARE #/LPF (NONE/RARE); Urine Culture Indicated NO; WBC Urine NONE SEEN #/HPF (NONE SEEN)
[2022-12-31 13:55] LABS: Amphetamine Screen Urine NEGATIVE (NEGATIVE); Barbiturates Screen Urine NEGATIVE (NEGATIVE); Benzodiazepines Screen Urine NEGATIVE (NEGATIVE); Buprenorphine Screen Urine NEGATIVE (NEGATIVE); Cannabinoid Screen Urine NEGATIVE (NEGATIVE); Cocaine Screen Urine NEGATIVE (NEGATIVE); Methadone Screen Urine NEGATIVE (NEGATIVE); Methamphetamines Screen Urine NEGATIVE (NEGATIVE); Opiate Screen Urine NEGATIVE (NEGATIVE); Oxycodone Screen Urine NEGATIVE (NEGATIVE); Phencyclidine Screen Urine NEGATIVE (NEGATIVE); Tricyclic Antidepressant Urine NEGATIVE (NEGATIVE)
--- NOTE | 2022-12-31 13:55 | ED.GENADUL1 ---
HPI - General Adult General Chief complaint: Recheck/Abnormal Lab/Rx Stated complaint: HYPOGLYCEMIC Time Seen by Provider: 12/31/22 12:17 Source: patient and family Source information: patient Mode of arrival: ambulance Limitations: no limitations History of Present Illness HPI narrative: Patient is a 32-year-old male who is presenting to the Emergency Room with chief complaint of hypoglycemic episode at home. Patient is a type I diabetic. Patient does not take oral pills, healing does insulin. Patient came himself his normal morning dosing of insulin, but then he did not eat or drink anything for 2 and half hours. Patient has a Dexicom and plan, he was reading to his phone that he was approximately 43-54, he is becoming lightheaded, confused sitting at a table. Patient's sister called 911. EMS arrived, patient was given oral glucose. Patient was also hypotensive, not tachycardic. Patient was given some IV fluids as well. Patient tried to have some toast and 3 cans or issues at home prior to EMS arriving. See EMS report. Patient currently feels well, asymptomatic. He has no headache. No chest pain or shortness of breath. No nausea or vomiting. No other acute complaints. Patient states he is fairly compliant with his medication. Patient denies any alcohol use currently, states he has a history of alcohol abuse. Patient denies any illicit drug use currently. No recent traveling, no sick contacts. No other acute complaints. . All systems are negative except as noted/marked. All systems reviewed and otherwise negative. . Nurses note and vital signs reviewed and patient is not hypoxic. General: The patient appears well and in no apparent distress. Patient is resting comfortably on cart. Patient is not toxic, lethargic, or listless Skin: Warm, dry, no pallor noted. There is no rash noted. No petechiae, purpura. No signs of skin infections, no obvious signs of any, track adorno, or infections to his forearms. Tattoos noted. Head: Normocephalic, atraumatic Eye: Normal conjunctiva, no drainage, EOMI. PERRL Ears, Nose, Mouth, and Throat: oral mucosa is moist. Nares patent. Mouth without vesicles. Cardiovascular: Regular Rate and Rhythm, no murmur, gallop, rub Respiratory: Patient is in no distress, no accessory muscle use, lungs are clear to auscultation, no wheezing, rales or rhonchi Back: non-tender, no CVA tenderness bilaterally to percussion. No CT LS midline pain GI: soft, no tenderness to palpation, no masses appreciated. No rebound, guarding, or rigidity noted. No flank pain bilateral, No distention Musculoskeletal: Patient has full range of motion of all of the extremities, no motor, sensory, or focal neurological deficits Neurological: A&O x3, normal speech Psychiatric: Cooperative Related Data Home Medications Medication Instructions Recorded Confirmed insulin lispro 100 unit/mL 1 sliding scale dose subcut 11/26/22 11/26/22 subcutaneous solution .COMPLEX Previous Rx's Medication Instructions Recorded insulin degludec 100 unit/mL (3 20 unit (0.2 mL) subcut Q24H #0 mL 11/28/22 mL) subcutaneous pen (Tresiba FlexTouch U-100 insulin) nystatin 100,000 unit/mL oral 1 ml PO QID 7 days #28 mL 11/28/22 suspension Allergies Allergy/AdvReac Type Severity Reaction Status Date / Time No Known Drug Allergies Allergy Verified 11/26/22 12:56 [facility] Medical History (Updated 12/31/22 @ 13:52 by Reji Last MD) Social History Smoking status: Never smoker Exam Constitutional Vital Signs, click to edit/add: Last Vital Signs Temp 97.4 F L 12/31/22 10:01 Pulse 81 12/31/22 13:28 Resp 16 12/31/22 13:28 BP 128/80 H 12/31/22 12:00 Pulse Ox 98 12/31/22 13:28 O2 Del Method Room Air 12/31/22 10:01 Course Vital Signs Vital signs: Vital Signs Blood Pressure 120/86 H 12/31/22 09:40 Temperature 97.4 F L 12/31/22 10:01 Pulse Rate 81 12/31/22 13:28 Respiratory Rate 16 12/31/22 13:28 Blood Pressure 128/80 H 12/31/22 12:00 Pulse Oximetry 98 12/31/22 13:28 Oxygen Delivery Method Room Air 12/31/22 10:01 Medical Decision Making MDM Narrative Medical decision making narrative: Patient BUN is elevated, creatinine is normal. Patient has her these had kidney insufficiency in the past. Patient is type I diabetic. Education and kidney insufficiency, insulin compliance, was discussed at bedside so that his kidney function does not become worse in the future it is not and upon dialysis which is now looking like a very likely possibility. Patient also has elevation of a few liver function tests as well. Patient has no hepatitis C, HIV, no recent viral infections. No history of liver issues. Patient was given a copy of his lab work and he'll follow up with his visual merchandising assistant and PCP for further testing as needed. Patient has been watched for approximately 5 hours in the Emergency Room. Patient has had his blood sugar checked every hour. Patient had a large breakfast. Patient is asymptomatic at discharge. Patient's urine and drug tox screen are negative as well. Patient states he has a history of abuse of alcohol and illicit drugs, he's been clean for quite some time. Patient is stable for care, will follow-up with PCP and visual merchandising assistant that he already has established. Lab Data Lab results reviewed: Yes I reviewed the patient's lab results Labs: Lab Results 12/31/22 12/31/22 12/31/22 Range/Units 10:18 11:26 13:24 Sodium 138 (136-145) mmol/L Potassium 4.4 (3.5-5.1) mmol/L Chloride 103 (98-107) mmol/L Carbon Dioxide 26.6 (21.0-32.0) mmol/L Anion Gap 12.8 BUN 34.0 H (7.0-18.0) mg/dL Creatinine 1.14 (0.70-1.30) mg/dL Est GFR ( Amer) >60 (>=60) Est GFR (Non-Af Amer) >60 (>=60) BUN/Creatinine Ratio 29.8 Glucose 235 H (74-106) mg/dL Calcium 9.3 (8.5-10.1) mg/dL Magnesium 2.0 (1.8-2.4) mg/dL Total Bilirubin 0.5 (0.2-1.0) mg/dL AST 18 (15-37) U/L ALT 31 (16-63) U/L Alkaline Phosphatase 160 H (46-116) U/L Troponin I High Sens <4.0 L (4.0-76.1) pg/mL Total Protein 8.3 H (6.4-8.2) g/dL Albumin 4.0 (3.4-5.0) g/dL Globulin 4.3 g/dL Albumin/Globulin Ratio 0.9 Urine Color (YELLOW) Urine Clarity (CLEAR) Urine pH (5.0-9.0) Ur Specific [place] (1.005-1.025) Urine Protein (NEG/TRACE) mg/dL Urine Glucose (UA) (NEGATIVE) mg/dL Urine Ketones (NEGATIVE) mg/dL Urine Occult Blood (NEGATIVE) Urine Nitrite (NEGATIVE) Urine Bilirubin (NEGATIVE) Urine Urobilinogen (0.2-1.0) EU/dL Ur Leukocyte Esterase (NEGATIVE) Urine RBC (0-2) #/HPF Urine WBC (NONE SEEN) #/HPF Ur Squamous Epith Cells (NONE/RARE) #/LPF Urine Crystals (None Seen) #/HPF Urine Bacteria (NONE SEEN) #/HPF Urine Casts (NONE SEEN) #/LPF Urine Mucus (NONE SEEN) Ur Culture Indicated? Urine Opiates Screen (NEGATIVE) Ur Buprenorphine Scrn (NEGATIVE) Ur Oxycodone Screen (NEGATIVE) Urine Methadone Screen (NEGATIVE) Ur Propoxyphene Screen (NEGATIVE) Ur Barbiturates Screen (NEGATIVE) U Tricyclic Antidepress (NEGATIVE) Ur Phencyclidine Scrn (NEGATIVE) Ur Amphetamines Screen (NEGATIVE) U Methamphetamines Scrn (NEGATIVE) U Benzodiazepines Scrn (NEGATIVE) Urine Cocaine Screen (NEGATIVE) U Cannabinoids Screen (NEGATIVE) POC Glucose 332 H 373 H (74-106) mg/dL 12/31/22 Range/Units 13:35 Sodium (136-145) mmol/L Potassium (3.5-5.1) mmol/L Chloride (98-107) mmol/L Carbon Dioxide (21.0-32.0) mmol/L Anion Gap BUN (7.0-18.0) mg/dL Creatinine (0.70-1.30) mg/dL Est GFR ( Amer) (>=60) Est GFR (Non-Af Amer) (>=60) BUN/Creatinine Ratio Glucose (74-106) mg/dL Calcium (8.5-10.1) mg/dL Magnesium (1.8-2.4) mg/dL Total Bilirubin (0.2-1.0) mg/dL AST (15-37) U/L ALT (16-63) U/L Alkaline Phosphatase (46-116) U/L Troponin I High Sens (4.0-76.1) pg/mL Total Protein (6.4-8.2) g/dL Albumin (3.4-5.0) g/dL Globulin g/dL Albumin/Globulin Ratio Urine Color Lt. yellow (YELLOW) Urine Clarity Clear (CLEAR) Urine pH 5.5 (5.0-9.0) Ur Specific [place] 1.015 (1.005-1.025) Urine Protein Negative (NEG/TRACE) mg/dL Urine Glucose (UA) Negative (NEGATIVE) mg/dL Urine Ketones Negative (NEGATIVE) mg/dL Urine Occult Blood Small A (NEGATIVE) Urine Nitrite Negative (NEGATIVE) Urine Bilirubin Negative (NEGATIVE) Urine Urobilinogen 0.2 (0.2-1.0) EU/dL Ur Leukocyte Esterase Negative (NEGATIVE) Urine RBC 5-10 A (0-2) #/HPF Urine WBC None seen (NONE SEEN) #/HPF Ur Squamous Epith Cells Rare (NONE/RARE) #/LPF Urine Crystals None seen (None Seen) #/HPF Urine Bacteria None seen (NONE SEEN) #/HPF Urine Casts None seen (NONE SEEN) #/LPF Urine Mucus None seen (NONE SEEN) Ur Culture Indicated? No Urine Opiates Screen Negative (NEGATIVE) Ur Buprenorphine Scrn Negative (NEGATIVE) Ur Oxycodone Screen Negative (NEGATIVE) Urine Methadone Screen Negative (NEGATIVE) Ur Propoxyphene Screen Negative (NEGATIVE) Ur Barbiturates Screen Negative (NEGATIVE) U Tricyclic Antidepress Negative (NEGATIVE) Ur Phencyclidine Scrn Negative (NEGATIVE) Ur Amphetamines Screen Negative (NEGATIVE) U Methamphetamines Scrn Negative (NEGATIVE) U Benzodiazepines Scrn Negative (NEGATIVE) Urine Cocaine Screen Negative (NEGATIVE) U Cannabinoids Screen Negative (NEGATIVE) POC Glucose (74-106) mg/dL Patient's here looks well, drug tox is negative. Patient has a history of kidney insufficiency. ECG Data Attestation: I personally reviewed and interpreted this ECG as follows: Interpretation: EKG interpretation. Normal sinus rhythm 80 beats a minute. Normal axis deviation. No acute ST elevation, no acute ectopy. QTC of 417. Q waves noted. EKG represents most likely early repolarization Discharge Plan Discharge Chief Complaint: Recheck/Abnormal Lab/Rx Clinical Impression: Elevated LFTs, Confusion, Hypoglycemia, CRI (chronic renal insufficiency) Patient Disposition: Home, Self-Care Condition: Good Prescriptions / Home Meds: No Action insulin lispro 100 unit/mL solution 1 sliding scale dose subcut .COMPLEX Rx Instructions: 1 sliding scale dose subcutaneously; insulin degludec [Tresiba FlexTouch U-100] 100 unit/mL (3 mL) insulin pen 20 unit SUBCUT Q24H Qty: 0 0RF nystatin 100,000 unit/mL suspension 1 ml PO QID 7 Days Qty: 28 0RF Rx Instructions: administer 1/2 of dose in each side of the mouth Instructions: Chronic Kidney Disease (ED), Non-diabetic Hypoglycemia (ED), Lightheadedness (ED) Additional Instructions: Make sure that he eats after giving herself insulin. Increase fluids. Make sure they follow-up with her visual merchandising assistant and her PCP. You have elevated kidney function testing and also elevated liver function testing as well. Follow-up with your PCP for additional outpatient testing as needed. Stand Alone Forms: Portal Instructions Referrals: JOANNA GARCIA [Primary Care Provider] - 1 week
== END 2022-12-31 14:03 | disposition home or self-care (01) ==
PROVIDERS: Emergency Provider Emergency Medicine; PCP Family Medicine
DX: E10.649 Type 1 diabetes mellitus with hypoglycemia without coma (principal); R79.89 Other specified abnormal findings of blood chemistry; R41.0 Disorientation, unspecified; N18.9 Chronic kidney disease, unspecified; Z79.4 Long term (current) use of insulin; E10.22 Type 1 diabetes mellitus with diabetic chronic kidney disease
CPT/HCPCS: 36415; 36416; 80053; 80307; 81003; 81015; 82948; 83735; 84484; 93005; 96360; 99285